=== PATIENT | female | born 1980 | race Two or more races ===

== ENCOUNTER 2024-01-19 08:56 | Emergency (ER) | payer OTHER ==
[~2024-01-19] VITALS: Ht 154.9 cm; Wt 68.0 kg
[2024-01-19 10:12] LABS: HEMATOCRIT 23.8 % (36.0-45.00); MEAN CORPUSCULAR HGB CONC 30.2 g/dl (32.0-36.0); PLATELET COUNT 461 K/uL (150-450); RED BLOOD COUNT 3.53 M/uL (4.00-6.00); RED CELL DISTRIBUTION WIDTH 22.1 % (11.5-14.5)
[2024-01-19 10:19] LABS: MEAN CELL VOLUME 67.3 fL (80.00-100.00); MEAN CORPUSCULAR HEMOGLOBIN 20.3 pg (27.00-32.0)
[2024-01-19 10:20] LABS: HEMOGLOBIN 7.2 g/dL (12.0-15.00)
[2024-01-19 10:28] LABS: CALCIUM 8.9 mg/dL (8.5-10.1); CREATININE SERUM 0.64 mg/dL (0.55-1.02); GFR 102.26; POTASSIUM 3.97 mEq/L (3.5-5.1)
== END 2024-01-19 12:17 | disposition left against medical advice (07) ==
LOC: ER 08:56
PROVIDERS: General Practice
DX: D64.89 Other specified anemias (principal)